=== PATIENT | male | born 1940 | race Caucasian/White ===

== ENCOUNTER → 2016-12-08 | Outpatient (CLI) | payer MEDICARE, BC ==
[~2016-12-08] MED LIST: ASPIRIN ENTERI325 M1 PO; ASPIRIN PO; AZO URINARY P97.5 MG; BAYER ASPIRIN325 M1 PO; CERTAGEN PO; CIPRO PO; CIPRO XR 500 M500 MG PO; CLOPIDOGREL75 MG PO; DITROPAN PO; FLAGYL250 M1 PO; FLOMAX0.4 M1 PO; GLUCOTROL; GLUCOTROL PO; LISINOPRIL PO; LISINOPRIL20 MG PO; MILLTRIUM SENI1 EACH PO; MULTI VITAMIN1 EACH PO; NORCO1 TAB 10/3 DOB; PERCOCET5/325 PO; PLAVIX PO; PROSCAR5 MG PO; PYRIDIUM PO; RAPAFLO8 MG PO; SIMVASTATIN20 MG PO; VICODIN 5/1 TAB 5/50 PO; ZOCOR PO; ZOCOR20 MG PO
--- NOTE | ~2016-12-08 | CO ---
Unit #: [id number] #: [id number] Patient: RONAL JARVIS [id number] [address] [place], [place] [address] [id number] O MR#: [id number] NAME: RONAL JARVIS ROOM: Age: 76 Sex: M Admission Date: 12/08/2016 : 1940 Attending Physician: Charlie Cruz M.D. Primary Care Physician: Jorge Cole M.D. Consultation Date: 12/08/2016 CONSULTATION REPORT REASON FOR CONSULTATION Preoperative medical evaluation prior to left total knee arthroplasty scheduled by Dr. Cruz for 12/22/2016. HISTORY OF PRESENT ILLNESS The patient is a 76-year-old male, who presents to preprocedural screening for the reasons indicated above. He reports left knee pain and resolving viral upper respiratory infection at this time. He denies chest, arm, neck, jaw pain or pressure, shortness of air, dyspnea on exertion, paroxysmal nocturnal dyspnea, CORDELIA. He denies palpitations, presyncope, or syncope. He denies dizziness, but has experienced intermittent lightheadedness since he has had the upper respiratory congestion. He is asymptomatic other than complains of left knee pain at this time. He has had no fever or chills. His main complaint is postnasal drip, which insights rarely productive cough with white sputum. The patient denies myocardial infarction, congestive heart failure, many stroke, insulin use for diabetes, or kidney disease. PAST MEDICAL HISTORY 1. Osteoarthritis. 2. Diabetes mellitus type 2. 3. Hypertension. 4. Hyperlipidemia. 5. Coronary artery disease, status post CABG x2, status post PCI with stent placement on Plavix. 6. Overactive bladder, status post prostate surgery with intermittent leakage of urine for which he is followed by Dr. Berny Du. PAST SURGICAL HISTORY 1. CABG x2 vessels, status post angioplasty with stents x2. 2. Third fingertip reattach. 3. Appendectomy. 4. Prostate. 5. Turbinectomy. Please note, this patient denies personal and family history of complications to anesthesia. ALLERGIES Denies latex allergy. Denies medication allergies. CURRENT MEDICATIONS Lisinopril 20 mg p.o. b.i.d., Zocor 20 mg p.o. at bedtime, multivitamin daily one p.o. daily, aspirin enteric-coated 325 mg p.o. daily, Plavix 75 mg p.o. daily, Ditropan 5 mg p.o. every other day, Glucotrol 20 mg p.o. Unit #: [id number] #: [id number] Patient: RONAL JARVIS tg SOCIAL HISTORY Denies tobacco use, EtOH use, and illicit drug use. FAMILY HISTORY Per review of Dr. Cruz's office note; sister, heart disease; brother, heart disease; brother, cancer; mother; glaucoma and cataracts; father, from MVA; sister with emphysema. REVIEW OF SYSTEMS Nasal congestion with clear rhinorrhea and postnasal drip. Denies fever chills, nausea, vomiting, or diarrhea. Intermittent small amount of white sputum production. Intermittent lightheadedness without ear pain since developed nasal and head congestion symptoms. A 10-point review of systems is conducted and is otherwise negative except as indicated under history of present illness above. PHYSICAL EXAMINATION GENERAL: A 76-year-old male, awake, alert, in no acute distress. VITAL SIGNS: Temperature 97.3, heart rate 85, respiratory rate 18, blood pressure 158/76, oxygen saturation 98% on room air. HEENT: Atraumatic and normocephalic. Sclerae anicteric. No discharge from eyes, ears, or nares. LYMPH: No preauricular, postauricular, tonsillar, submental, anterior, posterior cervical adenopathy. ENDOCRINE: No thyromegaly, thyroid nodules, or tenderness. RESPIRATORY: Clear to auscultation in all meléndez bilaterally without wheezes, rhonchi, or rales. CARDIOVASCULAR: S1, S2. Regular rate and rhythm without murmur or rub. GI: Bowel sounds are positive x4. Soft, nontender, nondistended. EXTREMITIES: 2+ bilateral lower extremity edema without cyanosis or clubbing. Calves; soft and nontender. Strength 5/5 in all extremities bilaterally to flexion and extension. NEUROLOGIC: Alert and oriented x3. Speech clear. Follows commands. Strength 5/5 in all extremities bilaterally DIAGNOSTIC STUDIES LABORATORY RESULTS: WBC 6.4, hemoglobin 13.6, hematocrit 41.6, platelets 274,000. Sodium 140, potassium 4.5, chloride 105, CO2 27, glucose 175, BUN 18, creatinine 0.8, calcium 9.6, AST 24, ALT 27, alkaline phos 64, bilirubin total 0.6, total protein 7.2, albumin 4.0. Hemoglobin A1c 9.9. PT 10.7, INR 1.0. Urinalysis; leukocyte esterase trace, wbc's trace. Urine culture and sensitivity pending at this time (the patient has an appointment to see Dr. Berny Du, his urologist tomorrow). Blood type is O positive. Antibody screen negative. Hemoglobin A1c and MRSA screen pending at this time IMAGING STUDIES: Two-view chest x-ray report pending at this time. CARDIOVASCULAR STUDIES: 12-lead EKG, date of study 12/04/2016, impression, sinus rhythm, poor R-wave progression, probable normal variant. Low QRS voltages in precordial leads, borderline ECG. IMPRESSION The patient is a 76-year-old male, who presents to preprocedural screening for; Unit #: [id number] #: [id number] Patient: RONAL JARVIS 1. Preoperative medical evaluation prior to left total knee arthroplasty. The patient's Pride revised cardiac risk index is equal to 0.4%. This represents the patient's perioperative risk of cardiac , fatal or nonfatal myocardial infarction, cardiopulmonary arrest, arrhythmia, and/or pulmonary edema. This has been discussed in detail with the patient. He wishes to proceed with surgery as scheduled at this time. 2. Diabetes mellitus type 2. The patient is recently started on all medication and is followed by his primary care physician, Dr. Cole. We will monitor Accu-Cheks, place the patient on constant carbohydrate diet, low-dose sliding scale insulin protocol and resume p.o. medications pending, postoperative oral intake. 3. Hypertension. Monitor blood pressure postoperatively and adjust medications accordingly. 4. History of coronary artery disease, status post coronary artery bypass grafting x2 and status post stent placement on Plavix. Plavix management will be per Dr. Cruz. 5. Overactive bladder, status post recent prostate surgery. The patient is stable at this time. We will monitor for postoperative urinary retention. 6. Recent and resolving viral urinary tract infection. I have advised the patient that he may use Mucinex ER [id number] as directed to assist with clearing postnasal drip. Thank you for allowing us to participate in the care of this patient. The patient has been evaluated by Dr. Herbert and preoperative cardiology clearance. The patient has also been evaluated by his dentist, Dr. Moe Packer and note of dental clearance with the medical records today. We will gladly follow the patient for postop medical management, pending order of Dr. Cruz. Dictated by... Anusha Donis A.P.R.N. for Mariah Castrejon M.D. MICHAEL/mickey TD: 12/09/2016 03:41 JOB #: [id number] CONSULTATION REPORT Page 1 of 1 X Anusha Donis TRANSPORTATION ASSISTANT X CONSULTATION REPORT
--- NOTE | ~2016-12-08 | CR63 ---
[facility] A Service of [facility] & [facility] RADIOLOGY TEXT RESULTS PATIENT: RONAL JARVIS LOCATION: [facility] : 38 UNIT #: [id number] AGE: [address]: Charlie Cruz MD SEX: M ORDER DR: [id number] [facility] [address] [place], [place] [address] [id number] O MR#: [id number] Acc #: [id number] NAME: RONAL JARVIS : 1940 SEX: M STUDY DATE/TIME: 12/08/2016 12:24 UNIT: [facility] ROOM: STUDY DESCRIPTION: CR Chest 2 View Attending Physician: Charlie Cruz M.D. Referring Physician: Charlie Cruz M.D. Ordering Physician: Charlie Cruz M.D. Primary Care Physician: Jorge Cole M.D. MEDICAL IMAGING REPORT This report is preliminary unless electronic signature is present EXAM Chest, 12/08/2016, [facility]. HISTORY 76-year-old male patient preop left total knee arthroplasty. Osteoarthritis. COMPARISON Chest, 07/20/2012. FINDINGS PA and lateral chest views show normal cardiac size and configuration. Previous bypass surgery is noted. Hilar structures are preserved. Mediastinal contours appear normal. Bilateral lungs are expanded and clear. IMPRESSION Previous coronary bypass surgery. Stable chest with no acute finding. Dictated by... Juan Mar M.D. THIS IS AN ELECTRONICALLY VERIFIED REPORT Juan Mar M.D. at 12/09/2016 8:12 AM ROGER/surjit TD: 12/08/2016 16:01 JOB #: [id number] MEDICAL IMAGING REPORT Page 1 of 1 COPY
[2016-12-08 10:07] LABS: HEMATOCRIT 41.6 % (38.0-50.0); HEMOGLOBIN 13.6 gm/dL (13.0-16.0); MEAN CELL VOLUME 78.7 FL (83-96); MEAN CORPUSCULAR HEMOGLOBIN 25.8 PG (28-34); MEAN CORPUSCULAR HGB CONC 32.8 g/dL (30-36); MEAN PLATELET VOLUME 8.1 FL (6.5-11.5); RED BLOOD COUNT 5.29 X10e (3.90-5.60); RED CELL DISTRIBUTION WIDTH 15.5 % (11.0-15.5); WHITE BLOOD COUNT 6.4 X10e3 (4.0-10.5)
[2016-12-08 10:08] LABS: URINE APPEARANCE CLEAR; URINE BILIRUBIN NEG (NEG); URINE BLOOD NEG (NEG); URINE COLOR YELLOW; URINE GLUCOSE 100 MG/DL (NEG); URINE KETONE NEG (NEG); URINE LEUKOCYTE ESTERASE TRACE (NEG); URINE NITRATE NEG (NEG); URINE PH 5.5 (5-8); URINE PROTEIN NEG (NEG); URINE SPECIFIC GRAVITY 1.019 (1.003-1.035); URINE UROBILINOGEN 0.2 MG/DL (NEG)
[2016-12-08 10:10] LABS: CULTURE INDICATED? YES; U HYALINE CASTS AUWI 0-2 /[LPF]; URBCS1 AUWI 0-2 /[HPF] (0-2); URINE BACTERIA AUWI NEG (NEGATIVE); URINE SQUAMOUS EPITHELIAL CELL NONE SEEN /[HPF]
[2016-12-08 10:21] LABS: PROTHROMBIN TIME (PATIENT) 10.7 SECONDS (9.6-11.5)
[2016-12-08 11:11] LABS: BILIRUBIN,TOTAL 0.6 mg/dL (0.2-2.0); BUN/CREATININE RATIO 22.5; CALCIUM SERUM 9.6 mg/dL (8.4-10.2); CREATININE SERUM 0.8 mg/dL (0.6-1.4); GLOM FILT RATE Estimated 85.6 mL/min (>60); POTASSIUM 4.5 mmol/L (3.5-5.1); PROTEIN TOTAL SERUM 7.2 g/dL (6.0-8.3)
== END | disposition home or self-care (01) ==
LOC: CAMB 09:36
PROVIDERS: Orthopaedic Surgery
DX: Z01.818 Encounter for other preprocedural examination (principal); M17.12 Unilateral primary osteoarthritis, left knee; Z95.1 Presence of aortocoronary bypass graft
CPT/HCPCS: 36415; 71020; 80053; 81003; 83036; 85027; 85610; 86850; 86900; 86901; 87070; 87086

== ENCOUNTER → 2017-02-23 | Outpatient (CLI) | payer MEDICARE, BC ==
--- NOTE | ~2017-02-23 | CO ---
Unit #: [id number] #: [id number] Patient: RONAL JARVIS [id number] [address] [place], [place] [address] [id number] O MR#: [id number] NAME: RONAL JARVIS ROOM: Age: 76 Sex: M Admission Date: 02/23/2017 : 1940 Attending Physician: Charlie Cruz M.D. Primary Care Physician: Jroge Cole M.D. Consultation Date: 02/23/2017 CONSULTATION REPORT REASON FOR CONSULTATION Preoperative medical evaluation prior to left total knee arthroplasty scheduled by Dr. Cruz for 03/04/2017. HISTORY OF PRESENT ILLNESS The patient is a 76-year-old male, who presents to preprocedural screening for the reasons indicated above. He initially presented in 11/2016 for preoperative medical evaluation. At that visit, his hemoglobin A1c returned at 9.9, and his surgery was rescheduled for when his hemoglobin A1c was in a controlled range. He states that there have been no changes since that time other than he has been placed on glipizide for diabetes. He denies interim upper chest, back, arm, neck, or jaw pain or pressure. No dyspnea on exertion, paroxysmal nocturnal dyspnea, or sleep apnea. No lightheadedness, dizziness, presyncope, syncope, or palpitations. He has not had a myocardial infarction, congestive heart failure, stroke, or TIA. He is not on insulin for his diabetes and does not have chronic kidney disease. Other than pain in the left knee at the time of this interview, he has no complaints today. PAST MEDICAL HISTORY 1. Osteoarthritis. 2. Type 2 diabetes mellitus. 3. Hypertension. 4. Hyperlipidemia. 5. Coronary artery disease, status post CABG x2 and status post PCI with stent placement on Plavix. 6. Overactive bladder, status post prostate surgery with intermittent leakage of urine for which he is followed by Dr. Berny Du. PAST SURGICAL HISTORY 1. CABG x2. 2. Status post angioplasty with stents x2. 3. Third fingertip reattach. 4. Appendectomy. 5. Prostate surgery. 6. Turbinectomy. The patient denies personal and family history of complications to anesthesia. ALLERGIES Denies latex allergy. Denies medication allergies. CURRENT MEDICATIONS Plavix 75 mg p.o. every morning, lisinopril 20 mg p.o. b.i.d., Zocor 20 mg Unit #: [id number] #: [id number] Patient: RONAL JARVIS p.o. at bedtime, Glucotrol 20 mg p.o. b.i.d., aspirin enteric-coated 325 mg p.o. every morning, [employer] multivitamin one p.o. daily. SOCIAL HISTORY Denies current tobacco use. He quit smoking cigarettes in 1979. Denies EtOH and illicit drug use. FAMILY HISTORY Heart disease, cancer, glaucoma, and cataracts, and emphysema. REVIEW OF SYSTEMS A 10-point review of systems is conducted and negative except as indicated under history of present illness as above. PHYSICAL EXAMINATION GENERAL: A 76-year-old male, awake, alert, in no acute distress. VITAL SIGNS: Temperature 98, heart rate 71, respiratory rate 20, blood pressure 133/79, and oxygen saturation 98% on room air. HEENT: Atraumatic and normocephalic. Sclerae anicteric. No discharge from eyes, ears, or nares. LYMPH: No preauricular, postauricular, tonsillar, submental, anterior, or posterior cervical adenopathy. ENDOCRINE: No thyromegaly, thyroid nodules, or tenderness. RESPIRATORY: Clear to auscultation in all meléndez bilaterally without wheezes, rhonchi, or rales. CARDIOVASCULAR: S1 and S2. Regular rate and rhythm without murmur or rub. No carotid bruits. GASTROINTESTINAL: Bowel sounds are positive x4. Soft, nontender, and nondistended. EXTREMITIES: No edema, cyanosis, or clubbing. MUSCULOSKELETAL: Strength 5/5 in all extremities bilaterally to flexion and extension. NEUROLOGIC: Alert and oriented x3. Speech clear. Follows directions during examination. DIAGNOSTIC STUDIES LABORATORY RESULTS: WBC 5.0, hemoglobin 13.8, hematocrit 42.4, and platelets 222,000. Sodium 141, potassium 4.4, chloride 107, CO2 of 25, glucose 118, BUN 21, creatinine 0.8, calcium 9.5, AST 31, ALT 33, alkaline phosphatase 50, bilirubin total 0.8, total protein 6.9, and albumin 4.2. Blood type O positive, antibody screen negative. PT 10.8 and INR 1.0. Hemoglobin A1c 6.8. Urinalysis; leukocyte esterase trace, protein trace, otherwise negative. Culture not indicated. IMAGING STUDIES: Two-view chest x-ray report, date of study 12/08/2016. Impression, previous coronary bypass surgery, stable chest with no acute finding. CARDIOVASCULAR STUDIES: 12-lead EKG, 12/04/2016, sinus rhythm, poor R-wave progression, probable normal variant, low QRS voltages in precordial leads, confirmed by Dr. Herbert. IMPRESSION The patient is a 76-year-old male, who presents to preprocedural screening for: 1. Preoperative medical evaluation prior to left total knee arthroplasty. The patient's Pride revised cardiac risk index is equal to 0.4%. This Unit #: [id number] #: [id number] Patient: RONAL JARVIS represents the patient's perioperative risk of fatal or nonfatal myocardial infarction, cardiopulmonary arrest, arrhythmia, and/or pulmonary edema. This has been discussed in detail with the patient. He wishes to proceed with surgery as scheduled at this time. We do have preoperative cardiac clearance on file from Dr. Herbert stating that he is cleared for surgery with acceptable cardiac risk. 2. Type 2 diabetes mellitus, controlled. The patient's hemoglobin A1c is much improved since he was here in November. We will monitor oral intake postoperatively and resume glipizide based on Accu-Cheks and ability to tolerate food and fluids. We will also recommend constant carbohydrate diet and low-dose sliding scale insulin postoperatively. 3. Hypertension. Blood pressure stable at this time. We will continue lisinopril per home dose and monitor blood pressure with medication adjustments accordingly. 4. Overactive bladder, status post prostate surgery. The patient states he is having no issues at this time. According to the patient's , he has been given preoperative clearance. 5. Osteoarthritis. 6. Hyperlipidemia. Continue Zocor postoperatively. Thank you for allowing us to participate in care of this patient. We will gladly follow him for postop medical management, pending order of Dr. Cruz. Dictated by... Mai Henry/mickey TD: 02/24/2017 08:26 JOB #: [id number] CONSULTATION REPORT Page 1 of 1 X Anusha Donis APRN CONSULTATION REPORT
[2017-02-23 10:22] LABS: HEMATOCRIT 42.4 % (38.0-50.0); HEMOGLOBIN 13.8 gm/dL (13.0-16.0); MEAN CELL VOLUME 82.4 FL (83-96); MEAN CORPUSCULAR HEMOGLOBIN 26.9 PG (28-34); MEAN CORPUSCULAR HGB CONC 32.6 g/dL (30-36); MEAN PLATELET VOLUME 8.9 FL (6.5-11.5); RED BLOOD COUNT 5.14 X10e (3.90-5.60)
[2017-02-23 10:38] LABS: URINE APPEARANCE CLEAR; URINE BILIRUBIN NEG (NEG); URINE BLOOD NEG (NEG); URINE COLOR YELLOW; URINE GLUCOSE NEG (NEG); URINE KETONE NEG (NEG); URINE LEUKOCYTE ESTERASE TRACE (NEG); URINE NITRATE NEG (NEG); URINE PH 5.5 (5-8); URINE PROTEIN TRACE (NEG); URINE SPECIFIC GRAVITY 1.023 (1.003-1.035)
[2017-02-23 10:40] LABS: PROTHROMBIN TIME (PATIENT) 10.8 SECONDS (9.6-11.5); U HYALINE CASTS AUWI 0-2 /[LPF]; URBCS1 AUWI 0-2 /[HPF] (0-2); URINE BACTERIA AUWI NEG (NEGATIVE); URINE SQUAMOUS EPITHELIAL CELL NONE SEEN /[HPF]
[2017-02-23 10:43] LABS: CULTURE INDICATED? NO
[2017-02-23 10:55] LABS: URINE SOURCE CLEAN CATCH
[2017-02-23 11:05] LABS: ALBUMIN SERUM 4.2 g/dL (3.5-5.0); BILIRUBIN,TOTAL 0.8 mg/dL (0.2-2.0); BUN/CREATININE RATIO 26.25; CALCIUM SERUM 9.5 mg/dL (8.4-10.2); CREATININE SERUM 0.8 mg/dL (0.6-1.4); GLOM FILT RATE Estimated 85.6 mL/min (>60); POTASSIUM 4.4 mmol/L (3.5-5.1); PROTEIN TOTAL SERUM 6.9 g/dL (6.0-8.3)
== END | disposition home or self-care (01) ==
LOC: CAMB 02-18 10:00
PROVIDERS: Orthopaedic Surgery
DX: Z01.812 Encounter for preprocedural laboratory examination (principal); M17.12 Unilateral primary osteoarthritis, left knee; E11.9 Type 2 diabetes mellitus without complications; I10 Essential (primary) hypertension; E78.5 Hyperlipidemia, unspecified; Z95.5 Presence of coronary angioplasty implant and graft
CPT/HCPCS: 36415; 80053; 81003; 83036; 85027; 85610; 86850; 86900; 86901; 87070

== ENCOUNTER 2017-03-04 06:27 | Inpatient (IN) | payer MEDICARE, BC ==
--- NOTE | ~2017-03-04 | OR ---
Unit #: [id number] #: [id number] Patient: RONAL JARVIS [id number] [address] [place], [place] [address] [id number] I MR#: [id number] NAME: RONAL JARVIS. ROOM: [facility] Date of Procedure: 03/04/2017 Admission Date: 03/04/2017 Surgeon: Charlie Cruz M.D. : 1940 Attending Physician: Charlie Cruz M.D. Primary Care Physician: Jorge Cole M.D. OPERATIVE REPORT PREOPERATIVE DIAGNOSIS Primary localized osteoarthritis of the left knee. POSTOPERATIVE DIAGNOSIS Primary localized osteoarthritis of the left knee. PROCEDURE PERFORMED Left total knee. ASSISTANTS Kathi Farris and Zainab House. ANESTHESIA Adductor canal block plus general. ESTIMATED BLOOD LOSS 100 mL. INDICATIONS FOR OPERATIVE PROCEDURE Mr. Jarvis is a 76-year-old gentleman with severe pain in the left knee. He has had pain for months. It has gotten progressively worse. The pain limits his walking and standing, and limited daily activities. He has difficulty shopping or sleeping at night. His x-rays showed that he has [id number] with subchondral sclerosis and periarticular osteophytes. He has tried injections and anti-inflammatories with no relief of his discomfort. He presents today for left total knee. DESCRIPTION OF PROCEDURE The patient was brought to the operating room, given an adductor canal block plus 1 g of Kefzol. The Kefzol will be continued postop, but discontinued within 23 hours from the start time of surgery. He was then given a general anesthetic. Tourniquet placed around the left thigh. The left leg was prepped and draped in a sterile fashion. Tourniquet inflated to 250. A straight anterior skin incision was made. The subcutaneous dissected away and a medial arthrotomy performed. Patella was slid to the side. Osteophytes removed from the femur. The intramedullary guide was used and a 6-degree valgus cut was made. After this cut was made, the femur was sized at a size 4. The anterior-posterior cutting block was applied. Rotation was checked. The anterior and posterior cuts were made along with the chamfer cuts. Proximal tibial cut was made using a 0-degree cutting block. It was sized at a size 4 as well. Any posterior condylar osteophytes were removed and any remaining meniscal fragments Unit #: [id number] #: [id number] Patient: RONAL JARVIS were debrided. The posterior capsule and periosteum were injected with ropivacaine. The trial femur was applied and the drill holes were made for lugs on the femoral component. The trial tibia was applied with first an 8 and then a 10 insert. The 10 gave better stability and still came to full extension. Rotation of the tibia was marked. The external alignment guide showed appropriate alignment of the limb. The patella was grasped with 2 towel clips, measured 25 mm thick, cut smooth at 14 and a 41 patella was the appropriate size. Three drill holes were made. Trial patella applied and it tracked properly. We then removed all the trials and used the drill and punch for the tibial tray. The knee was irrigated and dried while the cement was mixed. Then, all 3 components were cemented simultaneously. After the cement had hardened, it was judged that the 10 insert was the appropriate thickness, so this was opened and applied to the tray. The knee had the rest of the ropivacaine mixture injected. The tourniquet released. Hemostasis obtained and then the wound was closed using 0 Ethibond in the arthrotomy, 0 and 2-0 Vicryl in the subcutaneous, and the skin was closed with Prineo Dermabond closure. carpenter's assistant, Kathi Farris, was present throughout the entire case. Dictated by... Rody Valladares/mickey TD: 03/05/2017 05:05 JOB #: [id number] OPERATIVE REPORT Page 1 of 1 X Charlie Cruz MD PROCEDURE OPERATIVE NOTE
--- NOTE | ~2017-03-04 | DS ---
Unit #: [id number] #: [id number] Patient: RONAL JARVIS [id number] [facility]. [place], [place] [address] [id number] I MR#: [id number] NAME: RONAL JARVIS. ROOM: [facility] Age: 76 Sex: M Admission Date: 03/04/2017 : 1940 Discharge Date: 03/05/2017 Attending Physician: Charlie Cruz M.D. Primary Care Physician: Jorge Cole M.D. DISCHARGE SUMMARY ADMITTING DIAGNOSIS Primary localized osteoarthritis of the left knee. DISCHARGE DIAGNOSIS Primary localized osteoarthritis of the left knee. PROCEDURE IN THE HOSPITAL Left total knee. HOSPITAL COURSE Patient on March 04 taken to the operating room where he underwent a left total knee replacement. Postoperatively, he has done well. He had a little bit of drainage from the wound. His neurovascular exam is intact. His hemoglobin this morning is 11.3. INR is 1.4. It is felt he can be discharged to the [facility] today. He is weightbearing as tolerated. MEDICATIONS His medications are his routine home medicines plus his Vicodin for pain. He will be on Coumadin 5 mg a day. Will check his pro time tomorrow and Thursday and adjust his dose appropriately. CONDITION ON DISCHARGE Improved. DISPOSITION To the [facility]. Dictated by... Rody Vallaadres/all TD: 03/05/2017 11:54 JOB #: [id number] Unit #: [id number] #: [id number] Patient: RONAL JARVIS DISCHARGE SUMMARY Page 1 of 1 X Charlie Cruz MD DISCHARGE SUMMARY
[2017-03-04 07:50] LABS: INR 1.1; PROTHROMBIN TIME (PATIENT) 11.4 SECONDS (10.0-11.7)
[2017-03-05 04:42] LABS: HEMATOCRIT 34.2 % (38.0-50.0); HEMOGLOBIN 11.3 gm/dL (13.0-16.0)
[2017-03-05 04:53] LABS: INR 1.4; PROTHROMBIN TIME (PATIENT) 15.4 SECONDS (10.0-11.7)
[2017-03-05 05:08] LABS: BUN/CREATININE RATIO 18.57; CREATININE SERUM 0.7 mg/dL (0.6-1.4); GLOM FILT RATE Estimated 90.4 mL/min (>60); MAGNESIUM 1.9 mg/dL (1.6-3.0); POTASSIUM 4.4 mmol/L (3.5-5.1)
== END 2017-03-05 21:25 | DRG 470 ==
LOC: CSUR 06:27 → CPACUOF 08:00 → CSUR 08:30 → CPACUOF 09:24 → C4B 09:24 → CSUR 09:24 → CPACUOF 10:58 → C4B 10:58
PROVIDERS: Nurse Practitioner; Orthopaedic Surgery
PROC: 0SRD0J9 Replacement of Left Knee Joint with Synthetic Substitute, Cemented, Open Approach (ICD-10-PCS; principal; 2017-03-04 08:30)
DX: M17.12 Unilateral primary osteoarthritis, left knee (principal); E11.9 Type 2 diabetes mellitus without complications; H91.90 Unspecified hearing loss, unspecified ear; N40.0 Benign prostatic hyperplasia without lower urinary tract symptoms; Z79.82 Long term (current) use of aspirin; Z79.84 Long term (current) use of oral hypoglycemic drugs; Z79.02 Long term (current) use of antithrombotics/antiplatelets; Z95.1 Presence of aortocoronary bypass graft; Z87.891 Personal history of nicotine dependence
CPT/HCPCS: 80048; 82947; 83735; 85014; 85018; 85610; 94760; 97110; 97116; 97161; 97530; C1776; G8978-GP; G8979-GP; G8980-GP; J0131; J0171; J0690; J0735; J1100; J1170; J1650; J1815; J1885; J2250; J2405; J2795; J3010

== ENCOUNTER → 2017-03-16 | Outpatient (CLI) | payer MEDICARE, BC ==
[2017-03-16 10:54] LABS: INR 1.9
== END | disposition home or self-care (01) ==
LOC: CLAB 10:17
PROVIDERS: Orthopaedic Surgery
DX: Z51.81 Encounter for therapeutic drug level monitoring (principal); Z79.01 Long term (current) use of anticoagulants
CPT/HCPCS: 36415; 85610

== ENCOUNTER → 2017-03-19 | Outpatient (CLI) | payer MEDICARE, BC ==
[2017-03-19 11:10] LABS: INR 1.7; PROTHROMBIN TIME (PATIENT) 18.6 SECONDS (10.0-11.7)
== END | disposition home or self-care (01) ==
LOC: CLAB 10:23
PROVIDERS: Orthopaedic Surgery
DX: Z51.81 Encounter for therapeutic drug level monitoring (principal); Z96.652 Presence of left artificial knee joint; Z79.01 Long term (current) use of anticoagulants
CPT/HCPCS: 36415; 85610

== ENCOUNTER → 2017-03-23 | Outpatient (CLI) | payer MEDICARE, BC ==
[2017-03-23 15:47] LABS: INR 1.7; PROTHROMBIN TIME (PATIENT) 18.7 SECONDS (10.0-11.7)
== END | disposition home or self-care (01) ==
LOC: CLAB 15:12
PROVIDERS: Orthopaedic Surgery
DX: Z51.81 Encounter for therapeutic drug level monitoring (principal); Z79.899 Other long term (current) drug therapy
CPT/HCPCS: 36415; 85610

== ENCOUNTER → 2017-03-26 | Outpatient (CLI) | payer MEDICARE, BC ==
[2017-03-26 16:17] LABS: PROTHROMBIN TIME (PATIENT) 21.4 SECONDS (10.0-11.7)
== END | disposition home or self-care (01) ==
LOC: CLAB 15:35
PROVIDERS: Orthopaedic Surgery
DX: Z51.81 Encounter for therapeutic drug level monitoring (principal); Z96.652 Presence of left artificial knee joint; Z79.01 Long term (current) use of anticoagulants
CPT/HCPCS: 36415; 85610

== ENCOUNTER → 2017-03-30 | Outpatient (CLI) | payer MEDICARE, BC ==
[2017-03-30 12:12] LABS: INR 2.1; PROTHROMBIN TIME (PATIENT) 23.3 SECONDS (10.0-11.7)
== END | disposition home or self-care (01) ==
LOC: CLAB 11:28
PROVIDERS: Orthopaedic Surgery
DX: Z51.81 Encounter for therapeutic drug level monitoring (principal); Z96.652 Presence of left artificial knee joint; Z79.01 Long term (current) use of anticoagulants
CPT/HCPCS: 36415; 85610

== ENCOUNTER → 2017-04-30 | Outpatient (CLI) | payer MEDICARE, BC | END | disposition home or self-care (01) | LOC: CLAB 15:28 | DX: Z47.1 Aftercare following joint replacement surgery (principal); Z96.659 Presence of unspecified artificial knee joint | CPT/HCPCS: 36415; 85652; 86140 ==